=== PATIENT | female | born 2000 | race Caucasian/White ===

== ENCOUNTER 2025-04-02 16:18 | Outpatient (REF) | payer OTHER, MEDICAID, SELFPAY ==
--- NOTE | ~2025-04-02 | XR_ITS ---
EXAMINATION: XR SACRUM AND COCCYX CLINICAL INFORMATION: FALL COCCYX PAIN COMPARISON: None available. TECHNIQUE: 2 views of the sacrum and 2 views of the coccyx were obtained. FINDINGS: There is no fracture line or acute deformity. XR/XR sacrum coccyx min 2V IMPRESSION: Unremarkable examination. Electronically signed by: Thierno Hudson MD 04/02/2025 05:04 PM EDT
--- OUTSIDE RECORDS SUMMARY | 2025-04-02 16:21 | XMS_ITS | Clinical Summary ---
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 as directed 84 tablet 2 2 Active Active Problems Problem Noted Date Diagnosed Date Generalized anxiety disorder 11/21/2014 Overview (08/24/2018): Anxiety (300.02) Onset: 11/21/2014 Added by: Missy Clay Assessment & Plan (09/29/2020 11:29 PM EST): Had been treated with Zoloft in the past. Not on medication currently and feels that anxiety is controlled well at this time off medication. Assessment & Plan (09/13/2019 10:18 PM EST): Doing better on Zoloft 25 mg. No changes made to dose at this time Assessment & Plan (07/18/2019 10:21 PM EDT): Discussed that taking Zoloft will help with anxiety which patient knows but is having a difficult time in starting the medication due to anxiety. Discussed safety of medication and improvement in symptoms should happen in about 4-6 weeks. She will be here for a WCC in 6 weeks and will recheck at that time Raynaud's syndrome 11/21/2014 Overview (08/24/2018): Raynaud's syndrome (443.0) Onset: 11/21/2014 Added by: Missy Clay Attention deficit disorder 02/17/2011 Overview (08/24/2018): Attention deficit disorder (314.00) Onset: 02/17/2011 Added by: Missy Clay Assessment & Plan (09/29/2020 11:28 PM EST): On no medication at this time. Doing ok in college without medication. Immunizations Immunization Administration Dates Next Due DTaP 5 03/23/2007, 4,2002,07/23,2002 H1N1 Inj 09/22/2009 HPV Vaccine 9 Valent 02/18/2017,08/09/2016 Hep A, ped/adol 09/13/2019,08/24/2018 Hep B, ped/adol 07/01/2003,2002,2002 Hib (PRP-T) 10/16/2003, 2,2002,05/22 IPV 03/23/2007, 4,2002,05/22 Influenza, injectable, quadr ivalent, preservative free 07/21/2019,08/24/2018,08/17/2017,08/09,08/07/2015,08/17/2014 Influenza, injectable, trivalent 05/08/2010 Influenza, injectable, triva lent, preservative free 06/29/2013,06/02/2012,06/30/2011 MMR 04/01/2003 MMRV 03/23/2007 Meningococcal Conj (Menactra) MCV4P 08/24/2018,1 PPD Test 12/23/2004 Pneumococcal Conjugate 07/01/2003,2001,2002,05/22 Tdap 06/29/2013 Varicella 04/01/2003 Family History Relation Name Status Comments Father Cuco Alive Mother Tammy Alive Social History Tobacco Use Types Packs/Day Years Used Date Smoking Tobacco: Never Comments:Never Smoker Alcohol Use Standard Drinks/Week Comments No 0 (1 standard drink = 0.6 oz pur e alcohol) Comments Unknown Sex and Gender Information Value Date Recorded Sex Assigned at Not on file Legal Sex Female 6:12 PM EDT Gender Identity Not on file Sexual Orientation Straight 09/13/2019 3: 03 PM EST Last Filed Vital Signs Vital Sign Reading Time Taken Comments Blood Pressure 120/66 09/29/2020 4:58 PM EST Pulse 78 09/29/2020 4:58 PM EST Temperature 35.2 C (95.3 F) 09/29/2020 4:58 PM EST Respiratory Rate - - Oxygen Saturation - - Inhaled Oxygen Concentration - - Weight 63.7 kg (140 lb 8 oz) 09/29/2020 4:58 PM EST Height 160 cm (5' 3 ) 09/29/2020 4:58 PM EST Body Mass Index 24.89 09/29/2020 4:58 PM EST Plan of Treatment Health Maintenance Due Date Last Done Comments Men B Vaccine (1 of 2 - Standard) 2018 DTaP,Tdap,and Td Vaccines (7 - Td or Tdap) 06/29/2023 06/29/2013, 03/23/2007, 10/16/2003, Additional history exists COVID-19 Vaccine (3 - 2023-2 5 season) 2024 01/30/2021, 01/08/2021 Influenza Vaccines (#1) 2025 08/03/20, 10/06/2022, 07/21/2019, Additional history exists Hepatitis B Vaccines Completed 07/01/2003, 2002, 2002 Pneumococcal Vaccine Completed 07/01/2003, 2002, 2002, Additional history exists HIB Vaccines Completed 10/16/2003, 08/27, 2002, Additional history exists IPV Vaccines Completed 03/23/2007, 09/27, 2002, Additional history exists MMR Vaccines Completed 03/23/2007, 04/01/2003 Varicella Vaccines Completed 03/23/2007, 04/01/2003 HPV Vaccines Completed 02/18/2017, 08/09/2016 Meningococcal Vaccine Completed 08/24/2018, 013 Hepatitis A Vaccines Completed 09/13/2019, 08/24/20 18 Procedures * Due to [facility] law, this organization might not be sharing sensitive test results. Procedure Name Priority Date/Time Associated Diagnosis Comments CHLAMYDIA GC AMP PROBE Routine 09/29/2020 5:08 PM EST Well adult exam from Last 3 Months or Most Recently Relevant to Health Maintenance Results * Due to [employer] law, this organization might not be sharing sensitive test results. * CHLAMYDIA GC AMP PROBE (09/29/2020 5:08 PM EST) Chlamydia Trachomatis, Amplified NEGATIVE (NEG) [facility] Comment: No Chlamydia Trachomatis RNA detected in this patient's sample (REFERENCE RANGE/NORMAL VALUE: NOT DETECTED) Note: This test uses bobbin trucker- mediated amplification method to detect rRNA from C. Trachomatis N.GONORRHOEAE AMP PROBE NEGATIVE (NEG) [facility] Comment: No Neisseria Gonorrhoeae RNA detected in this patient's sample (REFERENCE RANGE/NORMAL VALUE: NOT DETECTED) NOTE: This test uses bobbin trucker-mediated amplification method to detect rRNA from N.Gonorrhoeae. A negative result does not preclude infection. In the case of a negative urine result, testing of an endocervical(female) or urethral (male) specimen is recommended if there is high clinical suspicion of infection. Due to very high sensitivity of Nucleic Acid Amplification Test, false positive results may occur. Therefore, specimen handling is extremely important. In patients in whom the disease is unlikely, additional sample for testing should be considered after an initial positive result. The performance characteristics of this test have not been evaluated in children. The Aptima Combo2 assay is not intended for the evaluation of suspected sexual abuse or for other medico-legal indications. The ordering provider should assess if the patient had consensual sex without risk of sexual abuse. Consult the [facility] if needed. Contact phone number . Therapeutic failure or success cannot be determined with the Aptima Combo2 assay since nucleic acid may persist following appropriate antimicrobial therapy. The Centers for Disease Control and Prevention (CDC) recommends confirmatory retesting using culture or a different nucleic acid amplification test when positive results occur, if indicated. CHLAM/GC AMP PROBE SPEC TYPE UNKNOWN [facility] Comment: Testing performed or reported by [facility], a Service of [facility], [address] [place] [address] Alexander Sung MD, Retail Attendant Swab (Vagina) 09/29/2020 5:0 8 PM EST 09/29/2020 10:43 PM EST us Missy Clay DO LAB MICROBIOLOGY - GENERAL ORDE MERCEDEZ Final Result [facility] from Last 3 Months or Most Recently Relevant to Health Maintenance Insurance [facility] NON PCC [facility] HMO Care Teams Hot Punch Press Operator Relationship Specialty Start Date End Date Jessy Verdin NP [address] [place] [address] PCP - General Pediatrics 12/29/20
--- OUTSIDE RECORDS SUMMARY | 2025-04-02 16:21 | XMS_ITS | Data Portability ---
Author Organization [facility], [id number] Address [address] [place] [address] Assessment No assessment recorded. Plan of Treatment Reminders Order Date Submit Date Provider Last Modified By Organization Details Last Modified Time Details Appointments None record ed. Lab None record ed. Referral None record ed. Procedures None record ed. Surgeries None record ed. Imaging None record ed. Medication Orders None record ed. Patient TargetsNo targets recorded. Patient InstructionsNo instructions recorded. Reason for Referral None Reported. Procedures Surgical History Date Name Laterality Status Provider Name and Address Organization Details Recorded Time OC-UDS Send Out Template NON DOT completed RADHA [facility] 09/11/2024 16:08:45 Imaging Results None recorded. Procedure Notes None recorded. Medical Equipment None Reported. Medications Name Sig Start Date Stop Date Status Note LastModified by Organization Details LastModified Time propranolol ER 60 mg capsule,24 hr,extended release TAKE 1 CAPSULE BY MOUTH EVERY DAY active Not Available Not Available No t Available amoxicillin 875 mg tablet TAKE 1 TABLET BY MOUTH TWICE A DAY FOR 7 DAYS active Not Available Not Available No t Available prednisone 50 mg tablet TAKE 1 TABLET BY MOUTH EVERY DAY FOR 5 DAYS active Not Available Not Available No t Available polymyxin B sulfate 10,000 unit-trimeth oprim 1 mg/mL eye drops TAKE 1 (OPHTHALMIC (EYE)) 4 TIMES PER DAY FOR 7 DAYS active Not Available Not Available No t Available betamethason e dipropionate 0.05 % topical ointment APPLY TO AFFECTED AREA TWICE A DAY NEEDED FOR SKIN IRRITATION active Not Available Not Available N ot Available cefdinir 300 mg capsule TAKE 1 CAPSULE BY MOUTH EVERY 12 HOURS FOR 5 DAYS active Not Available Not Available N ot Available amoxicillin 875 mg-potassium clavulanate 125 mg tablet TAKE 1 TABLET BY MOUTH TWICE A DAY FOR 10 DAYS active Not Available Not Available No t Available etonogestrel 0.12 mg-ethinyl estradiol 0.015 mg/24 hr vaginal ring INSERT 1 RING VAGINALLY EVERY [address] FOR 3 WEEKS OF A 4-WEEK CYCLE active Not Available Not Available No t Available atomoxetine 40 mg capsule TAKE 1 CAPSULE BY MOUTH EVERY MORNING active Not Available Not Available No t Available Tri-Estaryll a (28) 0.18 mg(7)/0.215 mg(7)/0.25 mg(7)-0.035 mg tablet TAKE 1 TABLET BY MOUTH EVERY DAY active Not Available Not Available No t Available Vitals None Recorded Social History None recorded. Functional Status None recorded. Mental Status None recorded. Family History Nothing Reported. Medical History No medical history recorded. Gynecological HistoryNo gynecological history recorded. Obstetrics History GPAL:G 0 P 0 0 0 0 Past Encounters Encounter ID Performer Location Encounter Start Date Encounter Closed Date Diagnosis/Indication Diagnosis SNOMED-CT Code Diagnosis ICD10 Code Diagnosis Note [id number] _[address] [address] 08/18/2022 16:54:41 08/18/2022 18:22:32 [id number] Scott Bob DO _[address] [address] 09/11/2024 15:42:38 09/11/2024 16:22:53 History and physical examination, occupation 920979882 Z02.1 Health Concerns Section Related Observation LastModified by Organization Detai ls LastModified Time None Recorded Concern Status LastModified by Organization Details LastModified Time None Recorded Advance Directives Directive None Recorded Payers Insurance Date Sequence Insurance Name Policy Number Policy Acuña Covered Member ID Acuña Member ID Guarantor Name 09/11/2024 1 [facility] [id number] 1 Leticia Cameron [id number] Cloie P Cameron 09/11/2024 1 [facility] [id number] 1 Cuco Cameron [id number] Cloie P Cameron 09/11/2024 OC-ESCREEN [facility] [id number] Cloie P Cameron 09/11/2024 1 [place] [facility] Cloie Cameron [id number] Faith Barnes OBGysurjit Episode No OBEpisode recorded.
== END 2025-04-02 16:19 | disposition home or self-care (01) ==
LOC: HO.XRAY 16:18
PROVIDERS: PCP Nurse Practitioner Family; Visit Provider Nurse Practitioner Family
DX: M53.3 Sacrococcygeal disorders, not elsewhere classified (principal)
CPT/HCPCS: 72220

== ENCOUNTER → 2025-04-02 16:30 | Outpatient (BNV) | payer BC, SELFPAY | PROVIDERS: PCP Nurse Practitioner Family; Visit Provider Radiology Diagnostic Radiology | DX: M53.3 Sacrococcygeal disorders, not elsewhere classified (principal) | CPT/HCPCS: 72220 ==